=== PATIENT | female | born 1995 | race Caucasian/White ===

== ENCOUNTER 2017-01-01 16:06 | Outpatient (CLI) | payer OTHER ==
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
== END 2017-01-01 23:00 ==
LOC: US SRH 16:06
DX: N89.8 Other specified noninflammatory disorders of vagina (principal)

== ENCOUNTER 2017-03-12 09:22 | Emergency (ER) | payer OTHER ==
--- NOTE | 2017-03-12 09:51 | DIAGNOSTIC IMAGING REPORT ---
PROCEDURE: XR CHEST 2 VIEW INDICATION: FEVER, COUGH TECHNIQUE: Two views. COMPARISON: 10/28/2015 FINDINGS: The cardiomediastinal contour is stable, within normal limits. The central vasculature is not congested. The lungs are clear without focal consolidation, pleural effusion or pneumothorax. The visualized osseous structures are intact. IMPRESSION: 1. No evidence of acute cardiopulmonary disease. 2. Stable exam compared to prior study.
--- NOTE | 2017-03-12 10:26 | ED ORDER SUMMARY ---
..... Patient: CECI LEIVA OrderSheet [facility] VisitID: [id number] [place] [address] 21y, F Registration Date/Time: 03/12/2017 ORDER SHEET Weight: 70.3 kg (stated) Allergies: Amoxicillin, Cefzil, Codeine, Fluoxetine, Peanuts, Penicillins, Sulfa Antibiotics, Zithromax GENERAL ORDERS: Chest 2V Urgent (09:34 03/12/2017 Pedro Lindsey) (Ack 9:39 PWeiler ER Tech1) (9:42 PWeiler ER Tech1) Culture, Strep Screen Urgent (09:56 03/12/2017 Pedro Lindsey) (9:58 LWjulio cesar R.N.) MEDICATION ORDERS: IV FLUIDS: ORDER SHEET NOTES: [Electronically signed by Marc Hwang Dr. (21:43 03/14/2017)] [Electronically signed by Saeid Hutchinson R.N. (09:55 03/16/2017)] [Electronically locked/signed by Saeid Hutchinson R.N. (09:55 03/16/2017)]
--- NOTE | 2017-03-12 10:26 | ED ORDER SUMMARY ---
..... Patient: CECI LEIVA OrderSheet [facility] VisitID: [id number] [place] [address] 21y, F Registration Date/Time: 03/12/2017 ORDER SHEET Weight: 70.3 kg (stated) Allergies: Amoxicillin, Cefzil, Codeine, Fluoxetine, Peanuts, Penicillins, Sulfa Antibiotics, Zithromax GENERAL ORDERS: Chest 2V Urgent (09:34 03/12/2017 Pedro Lindsey) (Ack 9:39 PWeiler ER Tech1) (9:42 PWeiler ER Tech1) Culture, Strep Screen Urgent (09:56 03/12/2017 Pedro Lindsey) (9:58 LWjulio cesar R.N.) MEDICATION ORDERS: IV FLUIDS: ORDER SHEET NOTES: [Electronically signed by Marc Hwang Dr. (21:43 03/14/2017)] [Electronically signed by Saeid Hutchinson R.N. (09:55 03/16/2017)] [Electronically locked/signed by Saeid Hutchinson R.N. (09:55 03/16/2017)]
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
--- NOTE | 2017-03-16 09:56 | ED DISCHARGE INSTRUCTIONS ---
Patient: CECI LEIVA General Instructions [facility] VisitID: [id number] [place] [address] 21y, F Registration Date/Time: 03/12/2017 03/12/2017 09:34 BP: 113/80. HR: 103. RR: 20. O2 saturation: 98%. Temp: 98.7 F. Blood pressure normal. Oxygen saturation normal. Acute viral upper respiratory infection (acute). INSTRUCTIONS Off work today, tomorrow. Off school today, tomorrow. Warnings: GENERAL WARNINGS: Return or contact your physician immediately if your condition worsens or changes unexpectedly, if not improving as expected, or if other problems arise. Specifically return if pain, vomiting, bleeding, breathing difficulty or fever. Your Current Medications: CONTINUE TAKING THE FOLLOWING MEDICATIONS: Depo-Medrol Injection : Last: 2 weeks ago. Prescription Medications: Motrin 600 mg tablets: take 1 tablet orally every 6 hours as needed for pain, stiffness, swelling or fever. Dispense thirty (30). No refill. Substitution is permissible. Phenergan Liquid 25mg /5 mL: take 1 teaspoon every 8 hours. Dispense sixty (60) mL. No refill. Substitution is permissible. (congestion or cough) OTC Medications: Tylenol 500 mg (available over the counter): take 1 orally every 6 hours as needed for fever or pain. Dispense thirty (30). No refill. Substitution is permissible. Claritin (available over the counter): take according to label instructions. Follow-up: Return to the emergency department as needed. Follow up with your doctor in three days. Reason for referral: recheck today's concerns. Summary of care provided to patient via paper. Screening today revealed the patient's blood pressure to be in the normal range. The patient should follow up with a primary care provider for blood pressure management. Understanding of the discharge instructions verbalized by patient. ADDITIONAL INFORMATION Viral Respiratory Illness [Adult] You have an Upper Respiratory Illness (URI) caused by a virus. This illness is contagious during the first few days. It is spread through the air by coughing and sneezing or by direct contact (touching the sick person and then touching your own eyes, nose or mouth). Most viral illnesses go away within 7-10 days with rest and simple home remedies. Sometimes, the illness may last for several weeks. Antibiotics will not kill a virus and are generally not prescribed for this condition. Home Care: 1) If symptoms are severe, rest at home for the first 2-3 days. When you resume activity, don't let yourself get too tired. 2) Avoid being exposed to cigarette smoke (yours or others). 3) Tylenol (acetaminophen) or ibuprofen (Advil, Motrin) will help fever, muscle aching and headache. (Persons under 18 with fever should not take aspirin since this may cause liver damage.) 4) Your appetite may be poor, so a light diet is fine. Avoid dehydration by drinking 6-8 glasses of fluids per day (water, soft drinks, juices, tea, soup). Extra fluids will help loosen secretions in the nose and lungs. 5) Fsph-ytd-fiherag cold medicines will not shorten the length of time youre sick, but they may be helpful for the following symptoms: cough (Robitussin DM); sore throat (Chloraseptic lozenges or spray); nasal and sinus congestion (Actifed, Sudafed, Chlortrimeton). Follow Up with your doctor or as advised if you dont improve over the next week. Get Prompt Medical Attention if any of the following occur: -- Cough with lots of colored sputum (mucus) or blood in your sputum -- Chest pain, shortness of breath, wheezing or have trouble breathing -- Severe headache; face, neck or ear pain -- Fever over 100.4 F (38.0 C) for more than three days -- You cant swallow due to throat pain Ibuprofen Oral tablet What is this medicine? IBUPROFEN (eye BYOO proe fen) is a non-steroidal anti-inflammatory drug (NSAID). It is used for dental pain, fever, headaches or migraines, osteoarthritis, rheumatoid arthritis, or painful monthly periods. It can also relieve minor aches and pains caused by a cold, flu, or sore throat. How should I use this medicine? Take this medicine by mouth with a glass of water. Follow the directions on the prescription label. Take this medicine with food if your stomach gets upset. Try to not lie down for at least 10 minutes after you take the medicine. Take your medicine at regular intervals. Do not take your medicine more often than directed. A special MedGuide will be given to you by the pharmacist with each prescription and refill. Be sure to read this information carefully each time. Talk to your aircraft electrical systems specialist regarding the use of this medicine in children. Special care may be needed. What side effects may I notice from receiving this medicine? Side effects that you should report to your doctor or health spiritual care coordinator as soon as possible: allergic reactions like skin rash, itching or hives, swelling of the face, lips, or tongue black or bloody stools, blood in the urine or in vomit breathing problems changes in vision chest pain general ill feeling or flu-like symptoms nausea or vomiting redness, blistering, peeling or loosening of the skin, including inside the mouth slurred speech or weakness on one side of the body stomach pain unexplained weight gain or swelling unusually weak or tired yellowing of eyes or skin Side effects that usually do not require medical attention (report to your doctor or health spiritual care coordinator if they continue or are bothersome): constipation or diarrhea dizziness gas or heartburn stomach upset What may interact with this medicine? Do not take this medicine with any of the following medications: cidofovir ketorolac methotrexate pemetrexed This medicine may also interact with the following medications: alcohol aspirin diuretics lithium other drugs for inflammation like prednisone warfarin What if I miss a dose? If you miss a dose, take it as soon as you can. If it is almost time for your next dose, take only that dose. Do not take double or extra doses. Where should I keep my medicine? Keep out of the reach of children. Store at room temperature between 15 and 30 degrees C (59 and 86 degrees F). Keep container tightly closed. Throw away any unused medicine after the expiration date. What should I tell my health care provider before I take this medicine? They need to know if you have any of these conditions: asthma cigarette smoker drink more than 3 alcohol containing drinks a day heart disease or circulation problems such as heart failure or leg edema (fluid retention) high blood pressure kidney disease liver disease stomach bleeding or ulcers an unusual or allergic reaction to ibuprofen, aspirin, other NSAIDS, other medicines, foods, dyes, or preservatives or trying to get breast-feeding What should I watch for while using this medicine? Tell your doctor or healthcare professional if your symptoms do not start to get better or if they get worse. This medicine does not prevent heart attack or stroke. In fact, this medicine may increase the chance of a heart attack or stroke. The chance may increase with longer use of this medicine and in people who have heart disease. If you take aspirin to prevent heart attack or stroke, talk with your doctor or health spiritual care coordinator. Do not take other medicines that contain aspirin, ibuprofen, or naproxen with this medicine. Side effects such as stomach upset, nausea, or ulcers may be more likely to occur. Many medicines available without a prescription should not be taken with this medicine. This medicine can cause ulcers and bleeding in the stomach and intestines at any time during treatment. Ulcers and bleeding can happen without warning symptoms and can cause . To reduce your risk, do not smoke cigarettes or drink alcohol while you are taking this medicine. You may get drowsy or dizzy. Do not drive, use machinery, or do anything that needs mental alertness until you know how this medicine affects you. Do not stand or sit up quickly, especially if you are an older patient. This reduces the risk of dizzy or fainting spells. This medicine can cause you to bleed more easily. Try to avoid damage to your teeth and gums when you brush or floss your teeth. Promethazine Hydrochloride Oral syrup What is this medicine? PROMETHAZINE (proe METH a zeen) is an antihistamine. It is used to treat allergic reactions and to treat or prevent nausea and vomiting from illness or motion sickness. It is also used to make you sleep before surgery, and to help treat pain or nausea after surgery. How should I use this medicine? Take this medicine by mouth. Follow the directions on the prescription label. Use a specially marked spoon or container to measure your medicine. Ask your pharmacist if you do not have one. Household spoons are not accurate. Take your doses at regular intervals. Do not take your medicine more often than directed. Talk to your aircraft electrical systems specialist regarding the use of this medicine in children. Special care may be needed. This medicine should not be given to infants and children younger than 2 years old. What side effects may I notice from receiving this medicine? Side effects that you should report to your doctor or health spiritual care coordinator as soon as possible: blurred vision irregular heartbeat, palpitations or chest pain muscle or facial twitches pain or difficulty passing urine seizures skin rash slowed or shallow breathing unusual bleeding or bruising yellowing of the eyes or skin Side effects that usually do not require medical attention (report to your doctor or health spiritual care coordinator if they continue or are bothersome): headache nightmares, agitation, nervousness, excitability, not able to sleep (these are more likely in children) stuffy nose What may interact with this medicine? Do not take this medicine with any of the following medications: medicines called MAO Inhibitors like Nardil, Parnate, Marplan, Eldepryl other phenothiazines like trimethobenzamide This medicine may also interact with the following medications: barbiturates like phenobarbital bromocriptine certain antidepressants certain antihistamines used in allergy or cold medicines epinephrine levodopa medicines for sleep medicines for mental problems and psychotic disturbances medicines for movement abnormalities as in Parkinson's disease, or for gastrointestinal problems muscle relaxants prescription pain medicines What if I miss a dose? If you miss a dose, take it as soon as you can. If it is almost time for your next dose, take only that dose. Do not take double or extra doses. Where should I keep my medicine? Keep out of the reach of children. Store at room temperature, between 15 and 25 degrees C (59 and 77 degrees F). Do not freeze Protect from light. Throw away any unused medicine after the expiration date. What should I tell my health care provider before I take this medicine? They need to know if you have any of these conditions: glaucoma high blood pressure or heart disease kidney disease liver disease lung or breathing disease, like asthma prostate trouble pain or difficulty passing urine seizures an unusual or allergic reaction to promethazine or phenothiazines, other medicines, foods, dyes, or preservatives or trying to get breast-feeding What should I watch for while using this medicine? Tell your doctor or health spiritual care coordinator if your symptoms do not start to get better in 1 to 2 days. You may get drowsy or dizzy. Do not drive, use machinery, or do anything that needs mental alertness until you know how this medicine affects you. To reduce the risk of dizzy or fainting spells, do not stand or sit up quickly, especially if you are an older patient. Alcohol may increase dizziness and drowsiness. Avoid alcoholic drinks. Your mouth may get dry. Chewing sugarless gum or sucking hard candy, and drinking plenty of water may help. Contact your doctor if the problem does not go away or is severe. This medicine may cause dry eyes and blurred vision. If you wear contact lenses you may feel some discomfort. Lubricating drops may help. See your eye doctor if the problem does not go away or is severe. This medicine can make you more sensitive to the sun. Keep out of the sun. If you cannot avoid being in the sun, wear protective clothing and use sunscreen. Do not use sun lamps or tanning beds/booths. If you are diabetic, check your blood-sugar levels regularly. Acetaminophen Oral tablet What is this medicine? ACETAMINOPHEN (a set a EVAN ángela fen) is a pain reliever. It is used to treat mild pain and fever. How should I use this medicine? Take this medicine by mouth with a glass of water. Follow the directions on the package or prescription label. Take your medicine at regular intervals. Do not take your medicine more often than directed. Talk to your aircraft electrical systems specialist regarding the use of this medicine in children. While this drug may be prescribed for children as young as 6 years of age for selected conditions, precautions do apply. What side effects may I notice from receiving this medicine? Side effects that you should report to your doctor or health spiritual care coordinator as soon as possible: allergic reactions like skin rash, itching or hives, swelling of the face, lips, or tongue breathing problems fever or sore throat redness, blistering, peeling or loosening of the skin, including inside the mouth trouble passing urine or change in the amount of urine unusual bleeding or bruising unusually weak or tired yellowing of the eyes or skin Side effects that usually do not require medical attention (report to your doctor or health spiritual care coordinator if they continue or are bothersome): headache nausea, stomach upset What may interact with this medicine? alcohol imatinib isoniazid other medicines with acetaminophen What if I miss a dose? If you miss a dose, take it as soon as you can. If it is almost time for your next dose, take only that dose. Do not take double or extra doses. Where should I keep my medicine? Keep out of reach of children. Store at room temperature between 20 and 25 degrees C (68 and 77 degrees F). Protect from moisture and heat. Throw away any unused medicine after the expiration date. What should I tell my health care provider before I take this medicine? They need to know if you have any of these conditions: if you frequently drink alcohol containing drinks liver disease an unusual or allergic reaction to acetaminophen, other medicines, foods, dyes or preservatives or trying to get breast-feeding What should I watch for while using this medicine? Tell your doctor or health spiritual care coordinator if the pain lasts more than 10 days (5 days for children), if it gets worse, or if there is a new or different kind of pain. Also, check with your doctor if a fever lasts for more than 3 days. Do not take other medicines that contain acetaminophen with this medicine. Always read labels carefully. If you have questions, ask your doctor or pharmacist. If you take too much acetaminophen get medical help right away. Too much acetaminophen can be very dangerous and cause liver damage. Even if you do not have symptoms, it is important to get help right away. You have been given the following additional information: Uri, Viral, No Abx (Adult) Ibuprofen Oral tablet Promethazine Hydrochloride Oral syrup Acetaminophen Oral tablet Off work today, tomorrow. Off school today, tomorrow. (Electronically signed by Marc Hwang Dr. 03/14/2017 21:43)
--- NOTE | 2017-03-16 09:56 | ED MED RECONCILIATION SUMMARY ---
Patient: CECI LEIVA Medication Reconciliation Report [facility] VisitID: [id number] [place] [address] 21y, F Registration Date/Time: 03/12/2017 Weight: 70.3 kg Height/Length: 65 in. BMI: 25.8 ALLERGIES: Amoxicillin, Cefzil, Codeine, Fluoxetine, Peanuts, Penicillins, Sulfa Antibiotics, Zithromax The patient's Home Medications are listed below: CONTINUE TAKING THE FOLLOWING MEDICATIONS: Depo-Medrol Injection, last dose: 2 weeks ago The source(s) of the original Home Medication information: Not obtained. The following Medications were given to the patient in the Emergency Department: None. The following Medications were prescribed to the patient: Tylenol 500 mg (available over the counter): take 1 orally every 6 hours as needed for fever or pain. Dispense thirty (30). No refill. Substitution is permissible. -- Marc Hwang Dr. Motrin 600 mg tablets: take 1 tablet orally every 6 hours as needed for pain, stiffness, swelling or fever. Dispense thirty (30). No refill. Substitution is permissible. -- Marc Hwang Dr. Claritin (available over the counter): take according to label instructions. -- Marc Hwang Dr. Phenergan Liquid 25mg /5 mL: take 1 teaspoon every 8 hours. Dispense sixty (60) mL. No refill. Substitution is permissible.(congestion or cough) -- Marc Hwang Dr.
--- NOTE | 2017-03-16 09:56 | ED MAR SUMMARY ---
..... Medication Administration Record [facility] [address] [place] [id number] Patient: CECI LEIVA Visit ID: [id number] 21y, F Weight: 70.3 kg Height/Length: 65 in BMI: 25.8 ALLERGIES: Amoxicillin, Cefzil, Codeine, Fluoxetine, Peanuts, Penicillins, Sulfa Antibiotics, Zithromax
--- NOTE | 2017-03-16 09:56 | ED MED RECONCILIATION SUMMARY ---
Patient: CECI LEIVA Medication Reconciliation Report [facility] VisitID: [id number] [place] [address] 21y, F Registration Date/Time: 03/12/2017 Weight: 70.3 kg Height/Length: 65 in. BMI: 25.8 ALLERGIES: Amoxicillin, Cefzil, Codeine, Fluoxetine, Peanuts, Penicillins, Sulfa Antibiotics, Zithromax The patient's Home Medications are listed below: CONTINUE TAKING THE FOLLOWING MEDICATIONS: Depo-Medrol Injection, last dose: 2 weeks ago The source(s) of the original Home Medication information: Not obtained. The following Medications were given to the patient in the Emergency Department: None. The following Medications were prescribed to the patient: Tylenol 500 mg (available over the counter): take 1 orally every 6 hours as needed for fever or pain. Dispense thirty (30). No refill. Substitution is permissible. -- Marc Hwang Dr. Motrin 600 mg tablets: take 1 tablet orally every 6 hours as needed for pain, stiffness, swelling or fever. Dispense thirty (30). No refill. Substitution is permissible. -- Marc Hwang Dr. Claritin (available over the counter): take according to label instructions. -- Marc Hwang Dr. Phenergan Liquid 25mg /5 mL: take 1 teaspoon every 8 hours. Dispense sixty (60) mL. No refill. Substitution is permissible.(congestion or cough) -- Marc Hwang Dr.
--- NOTE | 2017-03-16 09:56 | ED MAR SUMMARY ---
..... Medication Administration Record [facility] [address] [place], [place] [id number] Patient: CECI LEIVA Visit ID: [id number] 21y, F Weight: 70.3 kg Height/Length: 65 in BMI: 25.8 ALLERGIES: Amoxicillin, Cefzil, Codeine, Fluoxetine, Peanuts, Penicillins, Sulfa Antibiotics, Zithromax
== END 2017-03-12 10:33 | disposition home or self-care (01) ==
LOC: ED SRH 09:22
DX: J06.9 Acute upper respiratory infection, unspecified (principal); Z88.0 Allergy status to penicillin; Z88.1 Allergy status to other antibiotic agents; Z88.2 Allergy status to sulfonamides; Z88.5 Allergy status to narcotic agent; Z91.010 Allergy to peanuts
CPT/HCPCS: 90154; 90159

== ENCOUNTER 2017-03-25 20:16 | Emergency (ER) | payer OTHER ==
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
--- NOTE | 2017-03-25 21:43 | ED MAR SUMMARY ---
..... Medication Administration Record [facility] [address] [place] [id number] Patient: CECI LEIVA Visit ID: [id number] 21y, F Weight: 72.5 kg Height/Length: 65 in BMI: 26.6 ALLERGIES: Amoxicillin, Cefzil, Codeine, Fluoxetine, Peanuts, Penicillins, Sulfa Antibiotics, Zithromax
--- NOTE | 2017-03-25 21:43 | ED MED RECONCILIATION SUMMARY ---
Patient: CECI LEIVA Medication Reconciliation Report [facility] VisitID: [id number] [place] [address] 21y, F Registration Date/Time: 03/25/2017 Weight: 72.5 kg Height/Length: 65 in. BMI: 26.6 ALLERGIES: Amoxicillin, Cefzil, Codeine, Fluoxetine, Peanuts, Penicillins, Sulfa Antibiotics, Zithromax The patient's Home Medications are listed below: THE FOLLOWING MEDICATIONS NEED TO BE RECONCILED: CeleXA Oral 20 mg, daily Depo-Medrol Injection, last dose: 2 weeks ago The source(s) of the original Home Medication information: patient The following Medications were given to the patient in the Emergency Department: None. The following Medications were prescribed to the patient: Flexeril 10 mg: Take 1 orally every 8 hours as needed for muscle spasm. Dispense twenty (20). No refills. Substitution is permissible. -- Alyce Steele, A.R.N.P. Ultram 50 mg tablets: take 1-2 orally every 6 hours as needed for pain. Dispense twenty (20). No refills. Substitution is permissible. -- Alyce Steele, Avril.R.N.P.
--- NOTE | 2017-03-25 21:43 | ED DISCHARGE INSTRUCTIONS ---
Patient: CECI LEIVA General Instructions [facility] VisitID: [id number] [place] [address] 21y, F Registration Date/Time: 03/25/2017 Myofascial pain syndrome Fall on same level by slipping. INSTRUCTIONS Warnings: GENERAL WARNINGS: Return or contact your physician immediately if your condition worsens or changes unexpectedly, if not improving as expected, or if other problems arise. SPECIFICALLY, return if you develop incontinence of urine (loss of bladder control). chest pain, trouble breathing, abdominal pain. Prescription Medications: Flexeril 10 mg: Take 1 orally every 8 hours as needed for muscle spasm. Dispense twenty (20). No refills. Substitution is permissible. Ultram 50 mg tablets: take 1-2 orally every 6 hours as needed for pain. Dispense twenty (20). No refills. Substitution is permissible. Follow-up: Follow up with your doctor in about three days as needed. Call for an appointment. Summary of care provided to patient. Understanding of the discharge instructions verbalized by patient. ADDITIONAL INFORMATION Mechanical Fall You have had a fall today. It appears that the cause is mechanical. That means that you slipped, tripped or lost your balance. If your fall had been due to fainting or a seizure, further tests would be required. Home Care: Rest today and resume your normal activities when you are feeling back to normal. If you were injured during the fall, follow the advice from your doctor regarding care of your injury. You may use acetaminophen (Tylenol) or ibuprofen (Motrin, Advil) to control pain, unless another pain medicine was prescribed. [NOTE: If you have chronic liver or kidney disease or ever had a stomach ulcer or GI bleeding, talk with your doctor before using these medicines.] Fall Prevention: Was there anything that caused your fall that can be fixed, removed, or replaced? Make your home safe by keeping walkways clear of objects you may trip over. Use non-slip pads under rugs. Do not walk in poorly lit areas. Do not stand on chairs or wobbly ladders. Use caution when reaching overhead or looking upward. This position can cause a loss of balance. Be sure your shoes fit properly, have non-slip bottoms and are in good condition. Be cautious when going up and down curbs, and walking on uneven sidewalks. If your balance is poor, consider using a cane or walker. Stay as active as you can. Balance, flexibility, strength, and endurance all come from exercise. They all play a role in preventing falls. Follow Up with your doctor or as advised by our staff. Get Prompt Medical Attention if any of the following occur: Repeated mechanical falls, or unexplained falls Dizziness, fainting or seizure Severe headache Chest pain or shortness of breath Palpitations (very rapid or very slow or irregular heartbeat) Blood in vomit, stools (black or red color) Weakness of an arm or leg or one side of the face Difficulty with speech or vision Myofascial Pain Syndrome: Fibrositis Your pain is caused by a state of chronic muscle tension. This condition is called by various names: myofascial pain, fibrositis and trigger point pain. This can also be due to mechanical stress (such as working at a computer terminal for long periods; or work that requires repetitive motions of the arms or hands) or emotional stress (such as problems on the job or in your personal life). Sometimes there is no obvious cause. The pain can occur in the area of the muscle spasm or at a site distant to it. For example, spasm of a neck muscle can cause headache. Spasm of the muscle near the shoulder blade can cause pain shooting down the arm. Home Care: Try to identify the factors that may be causing your problem and change them: If you feel thatemotional stressis a cause of your pain, learn methods to deal more effectively with the stress in your life. These may include regular exercise, muscle relaxation techniques, meditation or simply taking time out for yourself. Consult your doctor or go to a local bookstore and review the many books and tapes available on the subject of stress reduction. If you feel that physical stress is a cause for your pain, try to modify any poor work habits. You may use acetaminophen (Tylenol) or ibuprofen (Motrin, Advil) to control pain, unless another medicine was prescribed. [NOTE: If you have chronic liver or kidney disease or ever had a stomach ulcer or GI bleeding, talk with your doctor before using these medicines.] The use of heat to the muscle (hot compress or heating pad) will be helpful to reduce muscle spasm. Some persons get relief with ice packs. Apply an ice pack (crushed or cubed ice in a plastic bag, wrapped in a towel) for 20 minutes at a time as needed. Use the method that feels best to you. Massaging the trigger point and stretching out the muscleare an important parts of prevention and treatment. Trigger point massage can be done by first applying heat to the area to warm and prepare the muscle. Have someone apply steady thumb pressure directly on the knot in the muscle (the most tender point) for 30 seconds. Release the pressure, then massage the surrounding muscle. Repeat the process, applying more pressure to the trigger point each time. Do this up to the limit of pain. With each treatment, the trigger point should become less tender and the pain should decrease. You can apply local pressure to trigger points in the back by lying on the floor with a tennis ball under the trigger point. Follow Up with your doctor as advised or if not improving within the next week. It may be necessary for you to receive physical therapy if you do not respond to home treatment alone. Get Prompt Medical Attention if any of the following occur: If your trigger point is in the chest muscles, observe for pain that becomes more severe, lasts longer, or spreads into your shoulder/arm, neck or back; you develop trouble breathing, sweating, nausea or vomiting in association with chest pain If you develop weakness or numbness in an extremity If your pain worsens, regardless of its location Cyclobenzaprine Hydrochloride Oral tablet What is this medicine? CYCLOBENZAPRINE (lite tam tristan preen) is a muscle relaxer. It is used to treat muscle pain, spasms, and stiffness. How should I use this medicine? Take this medicine by mouth with a glass of water. Follow the directions on the prescription label. If this medicine upsets your stomach, take it with food or milk. Take your medicine at regular intervals. Do not take it more often than directed. Talk to your juice scaleman regarding the use of this medicine in children. Special care may be needed. What side effects may I notice from receiving this medicine? Side effects that you should report to your doctor or health healthcare administrator as soon as possible: allergic reactions like skin rash, itching or hives, swelling of the face, lips, or tongue chest pain fast heartbeat hallucinations seizures vomiting Side effects that usually do not require medical attention (report to your doctor or health healthcare administrator if they continue or are bothersome): headache What may interact with this medicine? Do not take this medicine with any of the following medications: cisapride droperidol flecainide grepafloxacin halofantrine levomethadyl MAOIs like Carbex, Eldepryl, Marplan, Nardil, and Parnate nilotinib pimozide probucol sertindole This medicine may also interact with the following medications: abarelix alcohol contrast dyes dolasetron guanethidine medicines for cancer medicines for depression, anxiety, or psychotic disturbances medicines to treat an irregular heartbeat medicines used for sleep or numbness during surgery or procedure methadone octreotide ondansetron palonosetron phenothiazines like chlorpromazine, mesoridazine, prochlorperazine, thioridazine some medicines for infection like alfuzosin, chloroquine, clarithromycin, levofloxacin, mefloquine, pentamidine, troleandomycin tramadol vardenafil What if I miss a dose? If you miss a dose, take it as soon as you can. If it is almost time for your next dose, take only that dose. Do not take double or extra doses. Where should I keep my medicine? Keep out of the reach of children. Store at room temperature between 15 and 30 degrees C (59 and 86 degrees F). Keep container tightly closed. Throw away any unused medicine after the expiration date. What should I tell my health care provider before I take this medicine? They need to know if you have any of these conditions: heart disease, irregular heartbeat, or previous heart attack liver disease thyroid problem an unusual or allergic reaction to cyclobenzaprine, tricyclic antidepressants, lactose, other medicines, foods, dyes, or preservatives or trying to get breast-feeding What should I watch for while using this medicine? Check with your doctor or health healthcare administrator if your condition does not improve within 1 to 3 weeks. You may get drowsy or dizzy when you first start taking the medicine or change doses. Do not drive, use machinery, or do anything that may be dangerous until you know how the medicine affects you. Stand or sit up slowly. Your mouth may get dry. Drinking water, chewing sugarless gum, or sucking on hard candy may help. Tramadol Hydrochloride Oral tablet What is this medicine? TRAMADOL (TRA ma dole) is a pain reliever. It is used to treat moderate to severe pain in adults. How should I use this medicine? Take this medicine by mouth with a full glass of water. Follow the directions on the prescription label. If the medicine upsets your stomach, take it with food or milk. Do not take more medicine than you are told to take. Talk to your juice scaleman regarding the use of this medicine in children. Special care may be needed. What side effects may I notice from receiving this medicine? Side effects that you should report to your doctor or health healthcare administrator as soon as possible: allergic reactions like skin rash, itching or hives, swelling of the face, lips, or tongue breathing difficulties, wheezing confusion itching light headedness or fainting spells redness, blistering, peeling or loosening of the skin, including inside the mouth seizures Side effects that usually do not require medical attention (report to your doctor or health healthcare administrator if they continue or are bothersome): constipation dizziness drowsiness headache nausea, vomiting What may interact with this medicine? Do not take this medicine with any of the following medications: MAOIs like Carbex, Eldepryl, Marplan, Nardil, and Parnate This medicine may also interact with the following medications: alcohol or medicines that contain alcohol antihistamines benzodiazepines bupropion carbamazepine or oxcarbazepine clozapine cyclobenzaprine digoxin furazolidone linezolid medicines for depression, anxiety, or psychotic disturbances medicines for migraine headache like almotriptan, eletriptan, frovatriptan, naratriptan, rizatriptan, sumatriptan, zolmitriptan medicines for pain like pentazocine, buprenorphine, butorphanol, meperidine, nalbuphine, and propoxyphene medicines for sleep muscle relaxants naltrexone phenobarbital phenothiazines like perphenazine, thioridazine, chlorpromazine, mesoridazine, fluphenazine, prochlorperazine, promazine, and trifluoperazine procarbazine warfarin What if I miss a dose? If you miss a dose, take it as soon as you can. If it is almost time for your next dose, take only that dose. Do not take double or extra doses. Where should I keep my medicine? Keep out of the reach of children. Store at room temperature between 15 and 30 degrees C (59 and 86 degrees F). Keep container tightly closed. Throw away any unused medicine after the expiration date. What should I tell my health care provider before I take this medicine? They need to know if you have any of these conditions: brain tumor depression drug abuse or addiction head injury if you frequently drink alcohol containing drinks kidney disease or trouble passing urine liver disease lung disease, asthma, or breathing problems seizures or epilepsy suicidal thoughts, plans, or attempt; a previous suicide attempt by you or a family member an unusual or allergic reaction to tramadol, codeine, other medicines, foods, dyes, or preservatives or trying to get breast-feeding What should I watch for while using this medicine? Tell your doctor or health healthcare administrator if your pain does not go away, if it gets worse, or if you have new or a different type of pain. You may develop tolerance to the medicine. Tolerance means that you will need a higher dose of the medicine for pain relief. Tolerance is normal and is expected if you take this medicine for a long time. Do not suddenly stop taking your medicine because you may develop a severe reaction. Your body becomes used to the medicine. This does NOT mean you are addicted. Addiction is a behavior related to getting and using a drug for a non-medical reason. If you have pain, you have a medical reason to take pain medicine. Your doctor will tell you how much medicine to take. If your doctor wants you to stop the medicine, the dose will be slowly lowered over time to avoid any side effects. You may get drowsy or dizzy. Do not drive, use machinery, or do anything that needs mental alertness until you know how this medicine affects you. Do not stand or sit up quickly, especially if you are an older patient. This reduces the risk of dizzy or fainting spells. Alcohol can increase or decrease the effects of this medicine. Avoid alcoholic drinks. You may have constipation. Try to have a bowel movement at least every 2 to 3 days. If you do not have a bowel movement for 3 days, call your doctor or health healthcare administrator. Your mouth may get dry. Chewing sugarless gum or sucking hard candy, and drinking plenty of water may help. Contact your doctor if the problem does not go away or is severe. You have been given the following additional information: Fall, Mechanical Myofascial Pain Syndrome Cyclobenzaprine Hydrochloride Oral tablet Tramadol Hydrochloride Oral tablet (Electronically signed by Alyce Steele A.R.N.P. 03/25/2017 21:31)
--- NOTE | 2017-03-25 21:43 | ED MED RECONCILIATION SUMMARY ---
Patient: CECI LEIVA Medication Reconciliation Report [facility] VisitID: [id number] [place] [address] 21y, F Registration Date/Time: 03/25/2017 Weight: 72.5 kg Height/Length: 65 in. BMI: 26.6 ALLERGIES: Amoxicillin, Cefzil, Codeine, Fluoxetine, Peanuts, Penicillins, Sulfa Antibiotics, Zithromax The patient's Home Medications are listed below: THE FOLLOWING MEDICATIONS NEED TO BE RECONCILED: CeleXA Oral 20 mg, daily Depo-Medrol Injection, last dose: 2 weeks ago The source(s) of the original Home Medication information: patient The following Medications were given to the patient in the Emergency Department: None. The following Medications were prescribed to the patient: Flexeril 10 mg: Take 1 orally every 8 hours as needed for muscle spasm. Dispense twenty (20). No refills. Substitution is permissible. -- Alyce Steele, A.R.N.P. Ultram 50 mg tablets: take 1-2 orally every 6 hours as needed for pain. Dispense twenty (20). No refills. Substitution is permissible. -- Alyce Steele, Avril.R.N.P.
--- NOTE | 2017-03-25 21:43 | ED MAR SUMMARY ---
..... Medication Administration Record Formerly [facility] [address] [place] [id number] Patient: CECI LEIVA Visit ID: [id number] 21y, F Weight: 72.5 kg Height/Length: 65 in BMI: 26.6 ALLERGIES: Amoxicillin, Cefzil, Codeine, Fluoxetine, Peanuts, Penicillins, Sulfa Antibiotics, Zithromax
== END 2017-03-25 21:00 | disposition home or self-care (01) ==
LOC: ED SRH 20:16
DX: M79.1 Myalgia (principal); V80.010A Animal-rider injured by fall from or being thrown from horse in noncollision accident, initial encounter; Y93.52 Activity, horseback riding; Y99.9 Unspecified external cause status; Y92.838 Other recreation area as the place of occurrence of the external cause

== ENCOUNTER 2017-05-06 09:19 | Emergency (ER) | payer OTHER ==
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
--- NOTE | 2017-05-06 11:58 | ED ORDER SUMMARY ---
..... Patient: CECI LEIVA OrderSheet [facility] VisitID: [id number] [place] [address] 21y, F Registration Date/Time: 05/06/2017 ORDER SHEET Weight: 72.5 kg (stated) Allergies: Amoxicillin, Cefzil, Codeine, Fluoxetine, Peanuts, Penicillins, Sulfa Antibiotics, Zithromax GENERAL ORDERS: MEDICATION ORDERS: Pepcid PO 20 mg (NOW) (11:43 05/06/2017 Madison CARTER) (11:57 ASchmuck) IV FLUIDS: Solu-MEDROL IV 125 mg (NOW) (:43 05/06/2017 Madison CARTER) (11:57 ASchmuck) Benadryl IV 25 mg (NOW) (:43 05/06/2017 Madison CARTER) (11:56 ASchmuck) ORDER SHEET NOTES: [Electronically signed by Gemini Ch R.N. (12:49 05/06/2017)] [Electronically signed by France Mcdaniel MD (23:43 05/06/2017)] [Electronically locked/signed by Gemini Ch R.N. (12:49 05/06/2017)]
--- NOTE | 2017-05-06 11:58 | ED ORDER SUMMARY ---
..... Patient: CECI LEIVA OrderSheet [facility] VisitID: [id number] [place] [address] 21y, F Registration Date/Time: 05/06/2017 ORDER SHEET Weight: 72.5 kg (stated) Allergies: Amoxicillin, Cefzil, Codeine, Fluoxetine, Peanuts, Penicillins, Sulfa Antibiotics, Zithromax GENERAL ORDERS: MEDICATION ORDERS: Pepcid PO 20 mg (NOW) (11:43 05/06/2017 Madison CARTER) (11:57 ASchmuck) IV FLUIDS: Solu-MEDROL IV 125 mg (NOW) (:43 05/06/2017 Madison CARTER) (11:57 ASchmuck) Benadryl IV 25 mg (NOW) (:43 05/06/2017 Madison CARTER) (11:56 ASchmuck) ORDER SHEET NOTES: [Electronically signed by Gemini Ch R.N. (12:49 05/06/2017)] [Electronically signed by France Mcdaniel MD (23:43 05/06/2017)] [Electronically locked/signed by Gemini Ch R.N. (12:49 05/06/2017)]
--- NOTE | 2017-05-06 23:43 | ED MED RECONCILIATION SUMMARY ---
Patient: CECI LEIVA Medication Reconciliation Report [facility] VisitID: [id number] [place] [address] 21y, F Registration Date/Time: 05/06/2017 Weight: 72.5 kg Height/Length: 65 in. BMI: 26.6 ALLERGIES: Amoxicillin, Cefzil, Codeine, Fluoxetine, Peanuts, Penicillins, Sulfa Antibiotics, Zithromax The patient's Home Medications are listed below: CONTINUE TAKING THE FOLLOWING MEDICATIONS: CeleXA Oral 20 mg, daily Depo-Medrol Injection, last dose: 2 weeks ago The source(s) of the original Home Medication information: patient The following Medications were given to the patient in the Emergency Department: Benadryl [IVP] IVP 25 mg, administered: 05/06/2017 11:54:00 AM SOLU-MEDROL [IVP] IVP 125 mg, administered: 05/06/2017 11:57:00 AM Pepcid [PO] PO 20 mg, administered: 05/06/2017 11:57:00 AM The following Medications were prescribed to the patient: Benadryl Allergy 25 mg (available over the counter): take 1-2 orally every 6 hours as needed for allergies. Dispense ten (10). No refill. Substitution is permissible. -- France Mcdaniel MD Prednisone 20 mg: take 3 orally every day for 1 day. Dispense sufficient quantity. No refills. -- France Mcdaniel MD
--- NOTE | 2017-05-06 23:43 | ED MED RECONCILIATION SUMMARY ---
Patient: CECI LEIVA Medication Reconciliation Report [facility] VisitID: [id number] [place] [address] 21y, F Registration Date/Time: 05/06/2017 Weight: 72.5 kg Height/Length: 65 in. BMI: 26.6 ALLERGIES: Amoxicillin, Cefzil, Codeine, Fluoxetine, Peanuts, Penicillins, Sulfa Antibiotics, Zithromax The patient's Home Medications are listed below: CONTINUE TAKING THE FOLLOWING MEDICATIONS: CeleXA Oral 20 mg, daily Depo-Medrol Injection, last dose: 2 weeks ago The source(s) of the original Home Medication information: patient The following Medications were given to the patient in the Emergency Department: Benadryl [IVP] IVP 25 mg, administered: 05/06/2017 11:54:00 AM SOLU-MEDROL [IVP] IVP 125 mg, administered: 05/06/2017 11:57:00 AM Pepcid [PO] PO 20 mg, administered: 05/06/2017 11:57:00 AM The following Medications were prescribed to the patient: Benadryl Allergy 25 mg (available over the counter): take 1-2 orally every 6 hours as needed for allergies. Dispense ten (10). No refill. Substitution is permissible. -- France Mcdaniel MD Prednisone 20 mg: take 3 orally every day for 1 day. Dispense sufficient quantity. No refills. -- France Mcdaniel MD
--- NOTE | 2017-05-06 23:43 | ED MAR SUMMARY ---
..... Medication Administration Record [facility] [address] [place] [address] Patient: CECI LEIVA Visit ID: [id number] 21y, F Weight: 72.5 kg Height/Length: 65 in BMI: 26.6 ALLERGIES: Amoxicillin, Cefzil, Codeine, Fluoxetine, Peanuts, Penicillins, Sulfa Antibiotics, Zithromax Given 11:54 05/06/2017 Jesenia Ramirez, Medication Administered: BENADRYL [IVP] (DIPHENHYDRAMINE HCL), Dose: 25 mg IVP over 30 second(s), Site: #1 right AC. Medication Ordered: Benadryl IV 25 mg (NOW). Given 11:05/06/2017 Jesenia Ramirez, Medication Administered: PEPCID [PO] (FAMOTIDINE), Dose: 20 mg Tablets PO. Medication Ordered: Pepcid PO 20 mg (NOW). Given 11:05/06/2017 Jesenia Ramirez, Medication Administered: SOLU-MEDROL [IVP] (METHYLPREDNISOLONE SODIUM SUCC), Dose: 125 mg IVP over 2 minute(s), Site: #1 right AC. Medication Ordered: Solu-MEDROL IV 125 mg (NOW).
--- NOTE | 2017-05-06 23:43 | ED MAR SUMMARY ---
..... Medication Administration Record [facility] [address] [place] [address] Patient: CECI LEIVA Visit ID: [id number] 21y, F Weight: 72.5 kg Height/Length: 65 in BMI: 26.6 ALLERGIES: Amoxicillin, Cefzil, Codeine, Fluoxetine, Peanuts, Penicillins, Sulfa Antibiotics, Zithromax Given 11:54 05/06/2017 Jesenia Ramirez, Medication Administered: BENADRYL [IVP] (DIPHENHYDRAMINE HCL), Dose: 25 mg IVP over 30 second(s), Site: #1 right AC. Medication Ordered: Benadryl IV 25 mg (NOW). Given 11:05/06/2017 Jesenia Ramirez, Medication Administered: PEPCID [PO] (FAMOTIDINE), Dose: 20 mg Tablets PO. Medication Ordered: Pepcid PO 20 mg (NOW). Given 11:05/06/2017 Jesenia Ramirez, Medication Administered: SOLU-MEDROL [IVP] (METHYLPREDNISOLONE SODIUM SUCC), Dose: 125 mg IVP over 2 minute(s), Site: #1 right AC. Medication Ordered: Solu-MEDROL IV 125 mg (NOW).
--- NOTE | 2017-05-06 23:43 | ED DISCHARGE INSTRUCTIONS ---
Patient: CECI LEIVA General Instructions [facility] VisitID: [id number] [place] [address] 21y, F Registration Date/Time: 05/06/2017 Generalized allergic reaction secondary to peanuts. No angioedema or bronchospasm. INSTRUCTIONS Warnings: SEDATIVE MEDICATION: You were given sedative medication during your visit. Do not drive or operate dangerous machinery for 6 hours. GENERAL WARNINGS: Return or contact your physician immediately if your condition worsens or changes unexpectedly, if not improving as expected, or if other problems arise. Your Current Medications: CONTINUE TAKING THE FOLLOWING MEDICATIONS: CeleXA Oral : 20 mg daily. Depo-Medrol Injection : Last: 2 weeks ago. Prescription Medications: Prednisone 20 mg: take 3 orally every day for 1 day. Dispense sufficient quantity. No refills. OTC Medications: Benadryl Allergy 25 mg (available over the counter): take 1-2 orally every 6 hours as needed for allergies. Dispense ten (10). No refill. Substitution is permissible. Follow-up: Follow up with your doctor as needed. Understanding of the discharge instructions verbalized by patient. ADDITIONAL INFORMATION Allergic Reaction,Generalized [Other] You are having an allergic reaction. This may cause an itchy rash, dizziness, fainting, trouble breathing or swallowing, and swelling of the face or other parts of the body. This can be caused by exposure to something in your surroundings that you have become sensitive to. This could be due to medicine or food. This could also be due to something you put on your skin or in your hair or something in the air. Often it is not possible to find out exactly what has caused your reaction. The goal of today's treatment is to relieve symptoms. The rash will usually fade over several days, but can sometimes last up to two weeks. Home Care: 1) If you know what you are allergic to, avoid it because future reactions could be worse than this one. 2) Avoid tight clothing and anything that heats up your skin (hot showers/baths, direct sunlight) since heat will make itching worse. 3) An ice pack will relieve local areas of intense itching and redness. Lanacaine cream or Solarcaine spray (or other product containing "benzocaine", available without a prescription) will reduce the itching. 4) Oral Benadryl (diphenhydramine) is an antihistamine available at drug and grocery stores. Unless a prescription antihistamine was given, Benadryl may be used to reduce itching if large areas of the skin are involved. Use lower doses during the daytime and higher doses at bedtime since the drug may make you sleepy. [NOTE: Do not use Benadryl if you have glaucoma or if you are a man with trouble urinating due to an enlarged prostate.] Claritin (loratidine) is an antihistamine that causes less drowsiness and is a good alternative for daytime use. Follow Up Follow Up with your doctor or this facility in two days if your symptoms do not continue to improve. If you had a severe reaction today, or if you have had several mild-moderate allergic reactions in the past, ask your doctor about allergy testing to find out what you are allergic to. If your reaction included dizziness, fainting or trouble breathing or swallowing, ask your doctor about carrying an Allergy Kit (injectable epinephrine) for home use. Get Prompt Medical Attention if any of the following occur: -- Trouble breathing or swallowing -- New or worse swelling in the face, eyelids, lips, mouth, tongue or throat -- Dizziness, weakness or fainting You have been given the following additional information: Allergic Reaction, Other (General) (Electronically signed by France Mcdaniel MD 05/06/2017 23:43)
== END 2017-05-06 12:25 | disposition home or self-care (01) ==
LOC: ED SRH 09:19
DX: T78.1XXA Other adverse food reactions, not elsewhere classified, initial encounter (principal); R22.1 Localized swelling, mass and lump, neck; X58.XXXA Exposure to other specified factors, initial encounter; Y93.89 Activity, other specified; Y99.9 Unspecified external cause status; Y92.9 Unspecified place or not applicable; Z79.899 Other long term (current) drug therapy; Z88.5 Allergy status to narcotic agent; Z91.010 Allergy to peanuts; Z88.1 Allergy status to other antibiotic agents

== ENCOUNTER 2017-05-07 18:37 | Emergency (ER) | payer OTHER ==
--- NOTE | 2017-05-07 20:00 | DIAGNOSTIC IMAGING REPORT ---
PROCEDURE: XR CHEST 2 VIEW INDICATION: CHEST PAIN TECHNIQUE: PA and lateral views. COMPARISON: Compared to chest x-ray on 03/12/2017 FINDINGS: Lungs are clear. Heart and mediastinum are normal. Thorax is normal. IMPRESSION: 1. Negative chest.
--- NOTE | 2017-05-07 20:02 | DIAGNOSTIC IMAGING REPORT ---
PROCEDURE: XR SOFT TISSUE NECK INDICATION: DIFFICULTY SWALLOWING TECHNIQUE: AP and lateral views. COMPARISON: None. FINDINGS: Soft tissues of the neck are within normal limits, including the airway, laryngeal ventricle, and epiglottis. Nasopharynx appears normal. IMPRESSION: 1. Normal soft tissues of the neck.
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
--- NOTE | 2017-05-07 20:44 | ED ORDER SUMMARY ---
..... Patient: CECI LEIVA OrderSheet [facility] VisitID: [id number] [place] [address] 21y, F Registration Date/Time: 05/07/2017 ORDER SHEET Weight: 72.5 kg (stated) Allergies: Amoxicillin, Cefzil, Codeine, Fluoxetine, Peanuts, Penicillins, Sulfa Antibiotics, Zithromax GENERAL ORDERS: City Tax Auditor (Continuous) (18:51 05/07/2017 JBoardley R.N. per protocol) (18:51 JBoardley R.N.) Pulse oximeter (18:51 05/07/2017 JBoardley R.N. per protocol) (18:51 JBoardley R.N.) EKG - ER Stat (18:51 05/07/2017 JBoardley R.N. per protocol) (18:51 JBoardley R.N.) Chest 2V Urgent (19:21 05/07/2017 Catia CARTER) (Ack 19:24 LMuller) (20:27 CBradburn R.N.) Soft Tissue Neck Urgent (19:21 05/07/2017 Catia CARTER) (Ack 19:24 LMuller) (20:27 CBlenoraburn R.N.) Culture, Strep Screen Urgent (19:22 05/07/2017 Catia CARTER) (19:23 CBlenoraburn R.N.) (19:23 LMuller) MEDICATION ORDERS: IV FLUIDS: ORDER SHEET NOTES: [Electronically signed by Pedro Burden R.N. (21:43 05/07/2017)] [Electronically signed by Blas Vences MD (21:48 05/07/2017)] [Electronically locked/signed by Pedro Burden R.N. (21:43 05/07/2017)]
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
--- NOTE | 2017-05-07 20:44 | ED ORDER SUMMARY ---
..... Patient: CECI LEIVA OrderSheet [facility] VisitID: [id number] [place] [address] 21y, F Registration Date/Time: 05/07/2017 ORDER SHEET Weight: 72.5 kg (stated) Allergies: Amoxicillin, Cefzil, Codeine, Fluoxetine, Peanuts, Penicillins, Sulfa Antibiotics, Zithromax GENERAL ORDERS: Tea Room Manager (Continuous) (18:51 05/07/2017 JBoardley R.N. per protocol) (18:51 JBoardley R.N.) Pulse oximeter (18:51 05/07/2017 JBoardley R.N. per protocol) (18:51 JBoardley R.N.) EKG - ER Stat (18:51 05/07/2017 JBoardley R.N. per protocol) (18:51 JBoardley R.N.) Chest 2V Urgent (19:21 05/07/2017 Catia CARTER) (Ack 19:24 LMuller) (20:27 CBradburn R.N.) Soft Tissue Neck Urgent (19:21 05/07/2017 Catia CARTER) (Ack 19:24 LMuller) (20:27 CBlenoraburn R.N.) Culture, Strep Screen Urgent (19:22 05/07/2017 Catia CARTER) (19:23 CBlenoraburn R.N.) (19:23 LMuller) MEDICATION ORDERS: IV FLUIDS: ORDER SHEET NOTES: [Electronically signed by Pedro Burden R.N. (21:43 05/07/2017)] [Electronically signed by Blas Vences MD (21:48 05/07/2017)] [Electronically locked/signed by Pedro Burden R.N. (21:43 05/07/2017)]
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
--- NOTE | 2017-05-07 21:49 | ED DISCHARGE INSTRUCTIONS ---
Patient: CECI LEIVA General Instructions [facility] VisitID: [id number] [place] [address] 21y, F Registration Date/Time: 05/07/2017 Reaction to peanut oil Sinusitis Bronchitis. INSTRUCTIONS No strenuous activity. Rest. Warnings: Further evaluation is necessary. GENERAL WARNINGS: Return or contact your physician immediately if your condition worsens or changes unexpectedly, if not improving as expected, or if other problems arise. Your Current Medications: CONTINUE TAKING THE FOLLOWING MEDICATIONS: CeleXA Oral : 20 mg daily. Depo-Medrol Injection : Last: 2 weeks ago. Prescription Medications: Albuterol HFA oral inhaler: inhale 2 puffs via spacer every 4 hours as needed for difficulty breathing, until symptoms improve. Dispense one (1) unit. No refill. Doxycycline 100 mg: Take 1 capsule orally every 12 hours for 10 days. No refill. Prednisone 40 mg a day for 3 days. Follow-up: Follow up with your doctor in two days. Call for an appointment. Understanding of the discharge instructions verbalized by patient. Discharge instructions reviewed with and understanding was verbalized by neighbor. ADDITIONAL INFORMATION Albuterol Sulfate Pressurized inhalation, suspension What is this medicine? ALBUTEROL (al BYOO ter ole) is a bronchodilator. It helps open up the airways in your lungs to make it easier to breathe. This medicine is used to treat and to prevent bronchospasm. How should I use this medicine? This medicine is for inhalation through the mouth. Follow the directions on your prescription label. Take your medicine at regular intervals. Do not use more often than directed. Make sure that you are using your inhaler correctly. Ask you doctor or health care provider if you have any questions. Talk to your porcelain waxer regarding the use of this medicine in children. Special care may be needed. What side effects may I notice from receiving this medicine? Side effects that you should report to your doctor or health home care companion as soon as possible: allergic reactions like skin rash, itching or hives, swelling of the face, lips, or tongue breathing problems chest pain feeling faint or lightheaded, falls high blood pressure irregular heartbeat fever muscle cramps or weakness pain, tingling, numbness in the hands or feet vomiting Side effects that usually do not require medical attention (report to your doctor or health home care companion if they continue or are bothersome): cough difficulty sleeping headache nervousness or trembling stomach upset stuffy or runny nose throat irritation unusual taste What may interact with this medicine? anti-infectives like chloroquine and pentamidine caffeine cisapride diuretics medicines for colds medicines for depression or for emotional or psychotic conditions medicines for weight loss including some herbal products methadone some antibiotics like clarithromycin, erythromycin, levofloxacin, and linezolid some heart medicines steroid hormones like dexamethasone, cortisone, hydrocortisone theophylline thyroid hormones What if I miss a dose? If you miss a dose, use it as soon as you can. If it is almost time for your next dose, use only that dose. Do not use double or extra doses. Where should I keep my medicine? Keep out of the reach of children. Store at room temperature between 15 and 30 degrees C (59 and 86 degrees F). The contents are under pressure and may burst when exposed to heat or flame. Do not freeze. This medicine does not work as well if it is too cold. Throw away any unused medicine after the expiration date. Inhalers need to be thrown away after the labeled number of puffs have been used or by the expiration date; whichever comes first. Ventolin HFA should be thrown away 12 months after removing from foil pouch. Check the instructions that come with your medicine. What should I tell my health care provider before I take this medicine? They need to know if you have any of the following conditions: diabetes heart disease or irregular heartbeat high blood pressure pheochromocytoma seizures thyroid disease an unusual or allergic reaction to albuterol, levalbuterol, sulfites, other medicines, foods, dyes, or preservatives or trying to get breast-feeding What should I watch for while using this medicine? Tell your doctor or health home care companion if your symptoms do not improve. Do not use extra albuterol. If your asthma or bronchitis gets worse while you are using this medicine, call your doctor right away. If your mouth gets dry try chewing sugarless gum or sucking hard candy. Drink water as directed. You have been given the following additional information: Albuterol Sulfate Pressurized inhalation, suspension No strenuous activity. Rest. (Electronically signed by Blas Vences MD 05/07/2017 21:48)
--- NOTE | 2017-05-07 21:49 | ED MED RECONCILIATION SUMMARY ---
Patient: CECI LEIVA Medication Reconciliation Report [facility] VisitID: [id number] [place] [address] 21y, F Registration Date/Time: 05/07/2017 Weight: 72.5 kg Height/Length: 65 in. BMI: 26.6 ALLERGIES: Amoxicillin, Cefzil, Codeine, Fluoxetine, Peanuts, Penicillins, Sulfa Antibiotics, Zithromax The patient's Home Medications are listed below: CONTINUE TAKING THE FOLLOWING MEDICATIONS: CeleXA Oral 20 mg, daily Depo-Medrol Injection, last dose: 2 weeks ago The source(s) of the original Home Medication information: patient The following Medications were given to the patient in the Emergency Department: None. The following Medications were prescribed to the patient: Prednisone 40 mg a day for 3 days. -- Blas Vences MD Albuterol HFA oral inhaler: inhale 2 puffs via spacer every 4 hours as needed for difficulty breathing, until symptoms improve. Dispense one (1) unit. No refill. -- Blas Vences MD Doxycycline 100 mg: Take 1 capsule orally every 12 hours for 10 days. No refill. -- Blas Vences MD
--- NOTE | 2017-05-07 21:49 | ED MAR SUMMARY ---
..... Medication Administration Record [facility] [address] [place], [place] [id number] Patient: CECI LEIVA Visit ID: [id number] 21y, F Weight: 72.5 kg Height/Length: 65 in BMI: 26.6 ALLERGIES: Amoxicillin, Cefzil, Codeine, Fluoxetine, Peanuts, Penicillins, Sulfa Antibiotics, Zithromax
--- NOTE | 2017-05-07 21:49 | ED DISCHARGE INSTRUCTIONS ---
Patient: CECI LEIVA General Instructions [facility] VisitID: [id number] [place] [address] 21y, F Registration Date/Time: 05/07/2017 Reaction to peanut oil Sinusitis Bronchitis. INSTRUCTIONS No strenuous activity. Rest. Warnings: Further evaluation is necessary. GENERAL WARNINGS: Return or contact your physician immediately if your condition worsens or changes unexpectedly, if not improving as expected, or if other problems arise. Your Current Medications: CONTINUE TAKING THE FOLLOWING MEDICATIONS: CeleXA Oral : 20 mg daily. Depo-Medrol Injection : Last: 2 weeks ago. Prescription Medications: Albuterol HFA oral inhaler: inhale 2 puffs via spacer every 4 hours as needed for difficulty breathing, until symptoms improve. Dispense one (1) unit. No refill. Doxycycline 100 mg: Take 1 capsule orally every 12 hours for 10 days. No refill. Prednisone 40 mg a day for 3 days. Follow-up: Follow up with your doctor in two days. Call for an appointment. Understanding of the discharge instructions verbalized by patient. Discharge instructions reviewed with and understanding was verbalized by neighbor. ADDITIONAL INFORMATION Albuterol Sulfate Pressurized inhalation, suspension What is this medicine? ALBUTEROL (al BYOO ter ole) is a bronchodilator. It helps open up the airways in your lungs to make it easier to breathe. This medicine is used to treat and to prevent bronchospasm. How should I use this medicine? This medicine is for inhalation through the mouth. Follow the directions on your prescription label. Take your medicine at regular intervals. Do not use more often than directed. Make sure that you are using your inhaler correctly. Ask you doctor or health care provider if you have any questions. Talk to your bobbin disker regarding the use of this medicine in children. Special care may be needed. What side effects may I notice from receiving this medicine? Side effects that you should report to your doctor or health personal care service provider as soon as possible: allergic reactions like skin rash, itching or hives, swelling of the face, lips, or tongue breathing problems chest pain feeling faint or lightheaded, falls high blood pressure irregular heartbeat fever muscle cramps or weakness pain, tingling, numbness in the hands or feet vomiting Side effects that usually do not require medical attention (report to your doctor or health personal care service provider if they continue or are bothersome): cough difficulty sleeping headache nervousness or trembling stomach upset stuffy or runny nose throat irritation unusual taste What may interact with this medicine? anti-infectives like chloroquine and pentamidine caffeine cisapride diuretics medicines for colds medicines for depression or for emotional or psychotic conditions medicines for weight loss including some herbal products methadone some antibiotics like clarithromycin, erythromycin, levofloxacin, and linezolid some heart medicines steroid hormones like dexamethasone, cortisone, hydrocortisone theophylline thyroid hormones What if I miss a dose? If you miss a dose, use it as soon as you can. If it is almost time for your next dose, use only that dose. Do not use double or extra doses. Where should I keep my medicine? Keep out of the reach of children. Store at room temperature between 15 and 30 degrees C (59 and 86 degrees F). The contents are under pressure and may burst when exposed to heat or flame. Do not freeze. This medicine does not work as well if it is too cold. Throw away any unused medicine after the expiration date. Inhalers need to be thrown away after the labeled number of puffs have been used or by the expiration date; whichever comes first. Ventolin HFA should be thrown away 12 months after removing from foil pouch. Check the instructions that come with your medicine. What should I tell my health care provider before I take this medicine? They need to know if you have any of the following conditions: diabetes heart disease or irregular heartbeat high blood pressure pheochromocytoma seizures thyroid disease an unusual or allergic reaction to albuterol, levalbuterol, sulfites, other medicines, foods, dyes, or preservatives or trying to get breast-feeding What should I watch for while using this medicine? Tell your doctor or health personal care service provider if your symptoms do not improve. Do not use extra albuterol. If your asthma or bronchitis gets worse while you are using this medicine, call your doctor right away. If your mouth gets dry try chewing sugarless gum or sucking hard candy. Drink water as directed. You have been given the following additional information: Albuterol Sulfate Pressurized inhalation, suspension No strenuous activity. Rest. (Electronically signed by Blas Vences MD 05/07/2017 21:48)
--- NOTE | 2017-05-07 21:49 | ED MED RECONCILIATION SUMMARY ---
Patient: CECI LEIVA Medication Reconciliation Report [facility] VisitID: [id number] [place] [address] 21y, F Registration Date/Time: 05/07/2017 Weight: 72.5 kg Height/Length: 65 in. BMI: 26.6 ALLERGIES: Amoxicillin, Cefzil, Codeine, Fluoxetine, Peanuts, Penicillins, Sulfa Antibiotics, Zithromax The patient's Home Medications are listed below: CONTINUE TAKING THE FOLLOWING MEDICATIONS: CeleXA Oral 20 mg, daily Depo-Medrol Injection, last dose: 2 weeks ago The source(s) of the original Home Medication information: patient The following Medications were given to the patient in the Emergency Department: None. The following Medications were prescribed to the patient: Prednisone 40 mg a day for 3 days. -- Blas Vences MD Albuterol HFA oral inhaler: inhale 2 puffs via spacer every 4 hours as needed for difficulty breathing, until symptoms improve. Dispense one (1) unit. No refill. -- Blas Vences MD Doxycycline 100 mg: Take 1 capsule orally every 12 hours for 10 days. No refill. -- Blas Vences MD
--- NOTE | 2017-05-07 21:49 | ED MAR SUMMARY ---
..... Medication Administration Record [facility] [address] [place], [place] [id number] Patient: CECI LEIVA Visit ID: [id number] 21y, F Weight: 72.5 kg Height/Length: 65 in BMI: 26.6 ALLERGIES: Amoxicillin, Cefzil, Codeine, Fluoxetine, Peanuts, Penicillins, Sulfa Antibiotics, Zithromax
== END 2017-05-07 21:05 | disposition home or self-care (01) ==
LOC: ED SRH 18:37
DX: T78.1XXA Other adverse food reactions, not elsewhere classified, initial encounter (principal); J01.90 Acute sinusitis, unspecified; J40 Bronchitis, not specified as acute or chronic; Z79.899 Other long term (current) drug therapy; Z88.2 Allergy status to sulfonamides; Z88.0 Allergy status to penicillin; Z91.010 Allergy to peanuts
CPT/HCPCS: 90154; 90159

== ENCOUNTER 2017-06-06 21:48 | Emergency (ER) | payer OTHER ==
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
--- NOTE | 2017-06-07 00:25 | ED ORDER SUMMARY ---
..... Patient: CECI LEIVA OrderSheet [facility] VisitID: [id number] [place] [address] 21y, F Registration Date/Time: 06/06/2017 ORDER SHEET Weight: 77.1 kg (stated) Allergies: Amoxicillin, Cefzil, Codeine, Fluoxetine, Peanuts, Penicillins, Sulfa Antibiotics, Zithromax GENERAL ORDERS: Ribs Unilat w PA Chest Left Urgent (22:44 06/06/2017 Kaleb Lindsey) (Ack 22:55 Jody) (23:24 Bluemarv) MEDICATION ORDERS: Toradol IM 60 mg (NOW) (22:44 06/06/2017 Kaleb Lindsey) (Ack 22:51 Susy R.N.) (22:59 Susy R.N.) IV FLUIDS: ORDER SHEET NOTES: [Electronically signed by Janeth Flowers R.N. (00:37 06/07/2017)] [Electronically signed by Domenico Cates Dr. (20:53 06/07/2017)] [Electronically locked/signed by Janeth Flowers R.N. (00:37 06/07/2017)]
--- NOTE | 2017-06-07 00:25 | ED ORDER SUMMARY ---
..... Patient: CECI LEIVA OrderSheet [facility] VisitID: [id number] [place] [address] 21y, F Registration Date/Time: 06/06/2017 ORDER SHEET Weight: 77.1 kg (stated) Allergies: Amoxicillin, Cefzil, Codeine, Fluoxetine, Peanuts, Penicillins, Sulfa Antibiotics, Zithromax GENERAL ORDERS: Ribs Unilat w PA Chest Left Urgent (22:44 06/06/2017 Kaleb Lindsey) (Ack 22:55 Jody) (23:24 Bluemarv) MEDICATION ORDERS: Toradol IM 60 mg (NOW) (22:44 06/06/2017 Kaleb Lindsey) (Ack 22:51 Susy R.N.) (22:59 Susy R.N.) IV FLUIDS: ORDER SHEET NOTES: [Electronically signed by Janeth Flowers R.N. (00:37 06/07/2017)] [Electronically signed by Domenico Cates Dr. (20:53 06/07/2017)] [Electronically locked/signed by Janeth Flowers R.N. (00:37 06/07/2017)]
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
--- NOTE | 2017-06-07 20:53 | ED MAR SUMMARY ---
..... Medication Administration Record [facility] [address] [place] [address] Patient: CECI LEIVA Visit ID: [id number] 21y, F Weight: 77.1 kg Height/Length: 65 in BMI: 28.3 ALLERGIES: Amoxicillin, Cefzil, Codeine, Fluoxetine, Peanuts, Penicillins, Sulfa Antibiotics, Zithromax Given 22:59 06/06/2017 Janeth Flowers ROmiNOmi Medication Administered: TORADOL [IM] (KETOROLAC TROMETHAMINE), Dose: 60 mg IM. Medication Ordered: Toradol IM 60 mg (NOW).
--- NOTE | 2017-06-07 20:53 | ED MAR SUMMARY ---
..... Medication Administration Record [facility] [address] [place] [address] Patient: CECI LEIVA Visit ID: [id number] 21y, F Weight: 77.1 kg Height/Length: 65 in BMI: 28.3 ALLERGIES: Amoxicillin, Cefzil, Codeine, Fluoxetine, Peanuts, Penicillins, Sulfa Antibiotics, Zithromax Given 22:59 06/06/2017 Janeth Flowers ROmiNOmi Medication Administered: TORADOL [IM] (KETOROLAC TROMETHAMINE), Dose: 60 mg IM. Medication Ordered: Toradol IM 60 mg (NOW).
--- NOTE | 2017-06-07 20:53 | ED MED RECONCILIATION SUMMARY ---
Patient: CECI LEIVA Medication Reconciliation Report [facility] VisitID: [id number] [place] [address] 21y, F Registration Date/Time: 06/06/2017 Weight: 77.1 kg Height/Length: 65 in. BMI: 28.3 ALLERGIES: Amoxicillin, Cefzil, Codeine, Fluoxetine, Peanuts, Penicillins, Sulfa Antibiotics, Zithromax The patient's Home Medications are listed below: THE FOLLOWING MEDICATIONS NEED TO BE RECONCILED: Acyclovir Oral, cold sores on mouth CeleXA Oral 30 mg, daily Depo-Medrol Injection, last dose: one month ago The source(s) of the original Home Medication information: Not obtained. The following Medications were given to the patient in the Emergency Department: Toradol [IM] IM 60 mg, administered: 06/06/2017 10:59:00 PM The following Medications were prescribed to the patient: Diclofenac 50 mg tablets: take 1 tablet orally every 8 hours as needed for pain or stiffness. Dispense thirty (30). No refill. -- Domenico Cates Dr.
--- NOTE | 2017-06-07 20:53 | ED MED RECONCILIATION SUMMARY ---
Patient: CECI LEIVA Medication Reconciliation Report [facility] VisitID: [id number] [place] [address] 21y, F Registration Date/Time: 06/06/2017 Weight: 77.1 kg Height/Length: 65 in. BMI: 28.3 ALLERGIES: Amoxicillin, Cefzil, Codeine, Fluoxetine, Peanuts, Penicillins, Sulfa Antibiotics, Zithromax The patient's Home Medications are listed below: THE FOLLOWING MEDICATIONS NEED TO BE RECONCILED: Acyclovir Oral, cold sores on mouth CeleXA Oral 30 mg, daily Depo-Medrol Injection, last dose: one month ago The source(s) of the original Home Medication information: Not obtained. The following Medications were given to the patient in the Emergency Department: Toradol [IM] IM 60 mg, administered: 06/06/2017 10:59:00 PM The following Medications were prescribed to the patient: Diclofenac 50 mg tablets: take 1 tablet orally every 8 hours as needed for pain or stiffness. Dispense thirty (30). No refill. -- Domenico Cates Dr.
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
== END 2017-06-07 00:32 | disposition home or self-care (01) ==
LOC: ED SRH 21:48
DX: S00.531A Contusion of lip, initial encounter (principal); S20.212A Contusion of left front wall of thorax, initial encounter; Y04.8XXA Assault by other bodily force, initial encounter; Y93.9 Activity, unspecified; Y92.830 Public park as the place of occurrence of the external cause; Y99.9 Unspecified external cause status; Z79.899 Other long term (current) drug therapy; Z88.0 Allergy status to penicillin; Z88.1 Allergy status to other antibiotic agents; Z88.2 Allergy status to sulfonamides